=== PATIENT | male | born 1980 | race Caucasian/White ===

== ENCOUNTER 2024-05-04 16:19 | Emergency (ER) | payer SELFPAY ==
[2024-05-04 16:24] VITALS: BP 115/66; PULSE 54; TEMP 36.6; O2SAT 100; BMI 22.3
--- NOTE | 2024-05-04 16:49 | ED_ITS ---
HPI - Skin/Abscess/Foreign Bdy General Chief complaint: Skin/Abscess/Foreign Body Stated complaint: rash Time Seen by Provider: 05/04/24 16:31 Source: patient Mode of arrival: walk-in History of Present Illness HPI narrative: 43-year-old male presents for rash which is on both arms from the wrist to the elbow. He works at a [employer] and has been using alcohol wipes to clean his arms off frequently. He believes that this is what is causing the rash. It is nowhere else on his body and he has not used the wipes anywhere else on his body. No purulent drainage and no fever. Related Data Previous Rx's ?Medication ?Instructions ?Recorded prednisone 10 mg tablet See Rx Instructions .Route 05/04/24 .COMPLEX #30 tabs Allergies Allergy/AdvReac Type Severity Reaction Status Date / Time No Known Drug Allergies Allergy Verified 05/04/24 16:24 Review of Systems ROS Narrative A ten point review of systems is negative except as noted above. PFSH PFSH Social History Little interest or pleasure in doing things: not at all Feeling down, depressed, or hopeless: not at all Exam Narrative Exam Narrative: Nurses note and vital signs reviewed and patient is not hypoxic. General: The patient appears well and in no apparent distress. Patient is resting comfortably on cart. Skin: Warm, dry, no pallor noted. There is erythematous raised rash present from his wrist to his elbows. No pustules present. No abscess or purulent drainage. No rash elsewhere. Head: Normocephalic, atraumatic Eye: Normal conjunctiva, no drainage Ears, Nose, Mouth, and Throat: oral mucosa is moist. Nares patent. Cardiovascular: Regular Rate and Rhythm Respiratory: Patient is in no distress, no accessory muscle use, lungs are clear to auscultation, no wheezing, rales or rhonchi Back: non-tender GI: Soft and nontender Musculoskeletal: The patient has no evidence of calf tenderness, no pitting edema, symmetrical pulses noted bilaterally Neurological: A&O, normal speech Psychiatric: Cooperative Constitutional Vital Signs, click to edit/add: Last Vital Signs Temp 97.9 F 05/04/24 16:24 Pulse 54 L 05/04/24 16:24 Resp 18 05/04/24 16:24 BP 115/66 05/04/24 16:24 Pulse Ox 100 05/04/24 16:24 Course Vital Signs Vital signs: Vital Signs Temperature 97.9 F 05/04/24 16:24 Pulse Rate 54 L 05/04/24 16:24 Respiratory Rate 18 05/04/24 16:24 Blood Pressure 115/66 05/04/24 16:24 Pulse Oximetry 100 05/04/24 16:24 Temperature 97.9 F 05/04/24 16:24 Pulse Rate 54 L 05/04/24 16:24 Respiratory Rate 18 05/04/24 16:24 Blood Pressure 115/66 05/04/24 16:24 Pulse Oximetry 100 05/04/24 16:24 MDM - Skin/Abscess/Foreign Bdy MDM Narrative Medical decision making narrative: My clinical impression is that he has contact dermatitis. He was given IM Solu- Medrol here and prescribed prednisone. Treatment diagnosis and follow-up were discussed with the patient. I have no suspicion of infection. Differential Diagnosis Differential diagnosis: Likely abscess of skin or subcutaneous tissue, allergic reaction to drug, cellulitis, eczema and contact dermatitis Discharge Plan Discharge Chief Complaint: Skin/Abscess/Foreign Body Clinical Impression: Contact dermatitis Patient Disposition: Home, Self-Care Time of Disposition Decision: 16:40 Condition: Good Mode of Transportation: Private Vehicle Prescriptions / Home Meds: New prednisone 10 mg tablet See Rx Instructions .ROUTE .COMPLEX Qty: 30 0RF Rx Instructions: 4 by mouth daily for three days then 3 by mouth daily for three days then 2 by mouth daily for three days then 1 by mouth daily for three days Print Language: Mongolian Instructions: Contact Dermatitis (DC) Referrals: Physician,Non-Staff, MD [Primary Care Provider] - 1 week
[2024-05-04] MEDS: METHYLPREDNISOLONE SOD SUCC PF 125 MG/2 ML VIAL IM (17:08)
== END 2024-05-04 17:16 | disposition home or self-care (01) ==
PROVIDERS: Emergency Provider Emergency Medicine
DX: L25.9 Unspecified contact dermatitis, unspecified cause (principal)
CPT/HCPCS: 96372; 99284; J2919

== ENCOUNTER 2024-08-06 11:55 | Emergency (ER) | payer SELFPAY ==
[2024-08-06 12:01] VITALS: BP 125/72; PULSE 71; TEMP 36.7; O2SAT 98; BMI 22.4
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
--- NOTE | 2024-08-06 12:21 | ED_ITS ---
HPI HPI - General Adult General Chief complaint: Upper Respiratory Infection Stated complaint: FLU LIKE SYMPTOMS Time Seen by Provider: 08/06/24 12:05 Source: patient Mode of arrival: walk-in Limitations: no limitations History of Present Illness HPI narrative: 44-year-old male presents to the emergency department for a 3 to 4-day history of a cough. It is nonproductive and he has bodyaches and congestion. He did not have an influenza vaccination this year. No known ill contacts. He had some loose stool but no vomiting or diarrhea. Related Data Home Medications ?Medication ?Instructions ?Recorded ?Confirmed No Known Home Medications 08/06/24 08/06/24 Allergies Allergy/AdvReac Type Severity Reaction Status Date / Time No Known Drug Allergies Allergy Verified 05/04/24 16:24 Opioid HPI Opioid Management Most Recent Opioid Data: No Data to Display Review of Systems ROS Narrative A ten point review of systems is negative except as noted above. PFSH PFSH Social History Little interest or pleasure in doing things: not at all Feeling down, depressed, or hopeless: not at all Exam Narrative Exam Narrative: Nurses note and vital signs reviewed and patient is not hypoxic. General: The patient appears in no apparent distress. Patient is resting comfortably on cart. Skin: Warm, dry, no pallor noted. There is no rash noted. Head: Normocephalic, atraumatic Eye: Normal conjunctiva, no drainage Ears, Nose, Mouth, and Throat: oral mucosa is moist. Nares patent. Cardiovascular: Regular Rate and Rhythm Respiratory: Patient is in no distress, no accessory muscle use, lungs are clear to auscultation, no wheezing, rales or rhonchi Back: non-tender GI: Soft and nontender Musculoskeletal: The patient has no evidence of calf tenderness, no pitting edema, symmetrical pulses noted bilaterally Neurological: A&O, normal speech Psychiatric: Cooperative Constitutional Vital Signs, click to edit/add: Last Vital Signs Temp 98.1 F 08/06/24 12:01 Pulse 71 08/06/24 12:01 Resp 18 08/06/24 12:01 BP 125/72 08/06/24 12:01 Pulse Ox 98 08/06/24 12:01 O2 Del Method Room Air 08/06/24 12:01 Course Vital Signs Vital signs: Vital Signs Temperature 98.1 F 08/06/24 12:01 Pulse Rate 71 08/06/24 12:01 Respiratory Rate 18 08/06/24 12:01 Blood Pressure 125/72 08/06/24 12:01 Pulse Oximetry 98 08/06/24 12:01 Oxygen Delivery Method Room Air 08/06/24 12:01 Temperature 98.1 F 08/06/24 12:01 Pulse Rate 71 08/06/24 12:01 Respiratory Rate 18 08/06/24 12:01 Blood Pressure 125/72 08/06/24 12:01 Pulse Oximetry 98 08/06/24 12:01 Oxygen Delivery Method Room Air 08/06/24 12:01 Medical Decision Making MDM Narrative Medical decision making narrative: He is positive for influenza and findings were discussed. Treatment diagnosis and follow-up were discussed with the patient and his . Differential Diagnosis Differential Diagnosis: Influenza, COVID, viral illness Lab Data Lab results reviewed: Yes I reviewed the patient's lab results Labs: Lab Results 08/06/24 Range/Units 12:05 Influenza Type A Ag Positive A Influenza Type B Ag Negative SARS-CoV-2 Ag (CV2AG) Negative (NEGATIVE) Discharge Plan Discharge Chief Complaint: Upper Respiratory Infection Clinical Impression: Influenza Patient Disposition: Home, Self-Care Time of Disposition Decision: 12:32 Condition: Good Mode of Transportation: Private Vehicle Prescriptions / Home Meds: No Action No Known Home Medications Print Language: [place] Citizen Instructions: Influenza (ED), Flu Shot (Vaccine) for Adults (ED) Referrals: Physician,Non-Staff, MD [Primary Care Provider] - 1 week
[2024-08-06 12:26] LABS: Influenza Virus A Antigen Positive; Influenza Virus B Antigen Negative; Internal Control Within Normal Limits; SARS-CoV-2 Ag NEGATIVE (NEGATIVE)
== END 2024-08-06 12:50 | disposition home or self-care (01) ==
PROVIDERS: Emergency Provider Emergency Medicine
DX: J10.1 Influenza due to other identified influenza virus with other respiratory manifestations (principal); R05.9 Cough, unspecified
CPT/HCPCS: 87804; 87811; 99283